=== PATIENT | female | born 1965 | race Caucasian/White ===

== ENCOUNTER → 2023-07-23 08:11 | Outpatient (REF) | payer OTHER, SELFPAY | LOC: WDC 08:11 | PROVIDERS: ATTENDING PHYSICIAN Obstetrics & Gynecology; FAMILY PHYSICIAN Family Medicine | DX: Z12.31 Encounter for screening mammogram for malignant neoplasm of breast (principal) | CPT/HCPCS: 77063; 77067 ==

== ENCOUNTER → 2024-01-27 14:10 | Outpatient (REF) | payer OTHER, SELFPAY | LOC: CLAB 14:10 | PROVIDERS: ATTENDING PHYSICIAN Otolaryngology | DX: N62 Hypertrophy of breast (principal) | CPT/HCPCS: 88305 ==

== ENCOUNTER 2024-06-18 06:21 | Day surgery (SDC) | payer OTHER, SELFPAY | END 2024-06-18 16:08 | disposition home or self-care (01) | LOC: GI 06:21 | PROVIDERS: ATTENDING PHYSICIAN Internal Medicine Gastroenterology | DX: Z12.11 Encounter for screening for malignant neoplasm of colon (principal); Q43.8 Other specified congenital malformations of intestine; D12.2 Benign neoplasm of ascending colon; D12.3 Benign neoplasm of transverse colon; Z83.719 Family history of colon polyps, unspecified | CPT/HCPCS: 45385; 45380; 88305 ==

== ENCOUNTER → 2024-09-30 14:44 | Outpatient (REF) | payer OTHER, SELFPAY | LOC: WDC 14:44 | PROVIDERS: ATTENDING PHYSICIAN Family Medicine | DX: Z12.31 Encounter for screening mammogram for malignant neoplasm of breast (principal) | CPT/HCPCS: 77063; 77067 ==

== ENCOUNTER → 2024-10-08 08:59 | Outpatient (REF) | payer OTHER, SELFPAY | LOC: RAD 08:59 | PROVIDERS: ATTENDING PHYSICIAN Obstetrics & Gynecology; FAMILY PHYSICIAN Family Medicine | DX: Z13.820 Encounter for screening for osteoporosis (principal) | CPT/HCPCS: 77080 ==